=== PATIENT | female | born 1960 | race Caucasian/White ===

== ENCOUNTER 2017-01-11 13:32 | Outpatient (CLI) | payer OTHER ==
--- NOTE | 2017-01-11 15:45 | RAD ---
PA AND LATERAL CHEST: History: Cough. Comparison: 02-19-15 FINDINGS: The cardiomediastinum is normal. The lungs are expanded without confluent areas of consolidation, pne umothorax, or pleural effusions. No acute osseous abnormality is seen. IMPRESSION: No radiographic evidence of acute cardiopulmonary process. POS: [facility]
== END 2017-01-11 13:33 | disposition home or self-care (01) ==
LOC: MADRAD 13:32
DX: J40 Bronchitis, not specified as acute or chronic (principal)
CPT/HCPCS: 71020

== ENCOUNTER 2019-09-08 10:35 | Outpatient (CLI) | payer OTHER ==
--- NOTE | 2019-09-08 11:25 | RAD ---
RIGHT HAND 2 VIEWS: Date: 09/08/2019 HISTORY: Right hand pain. FINDINGS/IMPRESSION: Degenerative changes are present. No fracture, dislocation, or bony destruction identified. POS: [facility]
== END 2019-09-08 10:36 | disposition home or self-care (01) ==
LOC: MADRAD 10:35
PROVIDERS: ATTEND Family Medicine
DX: M79.641 Pain in right hand (principal); M19.041 Primary osteoarthritis, right hand